=== PATIENT | male | born 1945 | race Caucasian/White ===

== ENCOUNTER 2023-06-10 20:14 | Emergency (ER) | payer MEDICARE, OTHER ==
[2023-06-10 20:49] LABS: #Eosinphils 0.3 thou/uL (0.0-0.7); #Monocytes 0.8 thou/uL (0.11-0.59); %Basophils 0.5 % (0.0-1.0); %Eosinophils 3.9 % (0.0-10.0); %Lymphocytes 17.3 % (21.0-51.0); %Monocytes 8.9 % (0.0-10.0); %Neutrophils 69.1 % (42.0-75.0); Hematocrit 42.8 % (42.0-52.0); Hemoglobin 14.3 g/dL (14.0-18.0); Mean Corpuscular HGB CONC 33.4 g/dL (32.0-36.0); Mean Corpuscular Hemoglobin 30.2 pg (27.0-31.0); Mean Corpuscular Volume 90.5 fl (78.0-98.0); Mean Platelet Volume 8.9 fL (7.4-10.4); Platelet Count 263 10x3/uL (130-400); RBC Distribution Width 12.6 % (11.5-14.5); Red Blood Cell (RBC) Count 4.73 mill/uL (4.70-6.10); White Blood Cell (WBC) Count 8.7 10x3/uL (4.8-10.8)
[2023-06-10 21:10] LABS: Actual Bicarbonate (HCO3a) 20.3 mEq/L (22-28); Analyzer IN Cardio ER; Base Excess (BEa) -3.7 mEq/L (-2.0 to +3.0); CO2 Tension 33.7 mmHg (35.0-45.0); Carboxyhemoglobin (COHb) 0.5 gm% (0.0-3.0); Hematocrit-ABG 41 % (42.0-52.0); O2 Tension (PaO2), arterial 75.7 mmHg (> 70.0); Potassium - ABG Lab 3.96 mmol/L (3.70-5.30); pH, Arterial 7.397 (7.35-7.45)
[2023-06-10 21:13] LABS: Puncture Site RR
[2023-06-10 21:14] LABS: ALT (SGPT) 23 U/L (8-55); AST (SGOT) 28 U/L (5-34); Albumin 4.3 g/dL (3.4-4.8); Alkaline Phosphatase 94 U/L (40-110); Anion Gap 13 mmol/L (10-20); BUN (Urea Nitrogen) 31 mg/dL (8.4-25.7); Bilirubin, Total 0.8 mg/dL (0.2-1.2); Calc. Creatinine Clearance 0 mL/min (70-130); Calcium 9.3 mg/dL (7.8-10.44); Carbon Dioxide 25 mmol/L (23-31); Chloride 103 mmol/L (98-107); Estimated GFR 49; Globulin 2.3 g/dL (2.4-3.5); Glucose 114 mg/dL (83-110); Potassium 4.8 mmol/L (3.5-5.1); Protein, Total 6.6 g/dL (5.8-8.1); Sodium 136 mmol/L (136-145)
[2023-06-10 21:14] LABS: ALV-art Gradient 110.335 mmHg (0-20)
[2023-06-10 21:15] LABS: Troponin I 0.011 ng/mL (< 0.028)
== END 2023-06-10 23:07 | disposition home or self-care (01) ==
LOC: ERS 20:14
DX: I16.0 Hypertensive urgency (principal); I11.0 Hypertensive heart disease with heart failure; I50.9 Heart failure, unspecified; Z95.0 Presence of cardiac pacemaker
CPT/HCPCS: 36415; 70450; 71045; 80053; 82805; 84484; 85025; 93005